=== PATIENT | male | born 1995 | race African-American/Black ===

== ENCOUNTER 2020-11-30 13:13 | Emergency (ER) | payer BC ==
[~2020-11-30] VITALS: Ht 172.7 cm; Wt 63.5 kg
--- NOTE | ~2020-11-30 | EMS ---
[address] [address] EMS Patient Care Report Name: CLAUDE WILCOX Room #: DEP AYANNA Simmons#: [id number] Admission: 11/30/20 Attend Phys: Discharge: 11/30/20 Date of : [birth year] Report #: [id number] THIS REPORT FOR: //name// Report Transmitted: 12/02/2020 08:50 EMS Care Summary [place], [place]/[facility] Incident [id number] @ 11/30/2020 12:43 Incident Location [address] [place], [place] [id number] Patient CLAUDE WILCOX Male, 25 Years 1995 Patient Address [address] [place], [place] [id number] Patient History Other,Type 1 Diabetes, Patient Allergies Reglan, Patient Medications Insulin, Chief Complaint abd pain Disposition Transported No Lights/[place] Dispatch Reason Abdominal Pain/Problems Transported To [facility] Narrative 2 dispatched to hemorrhage at residence. O/A M42 found male in house. Pt reported that he had abdominal pain with vomiting for the past 3 days. Pt had a history of diabetes and had not taken his insulin today. Pt reported he was throwing up both bright red vomit and coffee ground vomit. [place] moved [place] [facility] [place]. [place] [address] [address] EMS Patient Care Report Name: CLAUDE WILCOX Room #: DEP SnehaValerie#: [id number] Admission: 11/30/20 Attend Phys: Discharge: 11/30/20 Date of : [birth year] Report #: [id number] transported to [place]. M42 arrived at hospital and pt moved to room. M42 in service. Initial Vitals @12:59P: 98,R: 18,BP: 166/79,Pain: 6/10,GCS: 15,CO: 3,SpO2: 99,Revised Trauma: 12, @12:50P: 73,R: 18,BP: 161/100,Pain: 6/10,GCS: 15,Glucose: 186,SpO2: 100,Revised Trauma: 12, Assessments @12:48MENTAL:No Abnormalities,SKIN:No Abnormalities,HEENT:Head/Face: No Abnormalities,Eyes: No Abnormalities,Neck/Airway: No Abnormalities,LUNG SOUNDS:General: Nausea,ABDOMEN:General: Nausea,PELVIS//GI:EXTREMITIES:PULSE:NEURO:@13:02MENTAL:No Abnormalities,SKIN:No Abnormalities,HEENT:Head/Face: No Abnormalities,Eyes: No Abnormalities,Neck/Airway: No Abnormalities,LUNG SOUNDS:General: Nausea,ABDOMEN:General: Nausea,PELVIS//GI:No Abnormalities,EXTREMITIES:Left Arm: No Abnormalities,Right Arm: No Abnormalities,Left Leg: No Abnormalities,Right Leg: No Abnormalities,PULSE:NEURO:No Abnormalities, Impression Abdominal Pain Procedures @12:59Zofran - 8 Milligrams (mg) - OralResponse: Unchanged Timeline 12:40,Call Received 12:40,Dispatch Notified 12:43,Dispatched 12:43,En Route 12:45,On Scene 12:47,At Patient 12:50,BP: 161/100 M,PULSE: 73,RR: 18 R,SPO2: 100 Ox,ETCO2: ,B,PAIN: 6,GCS: 15, 12:53,Depart Scene 12:59,BP: 166/79 M,PULSE: 98,RR: 18 R,SPO2: 99 Ox,ETCO2: ,BG: ,PAIN: 6,GCS: 15, 12:59,Zofran - 8 Milligrams (mg) - Oral,Response: Unchanged 13:10,At Destination 13:30,Call Closed Disclaimer v1.1 Copyright 2020 [employer] This EMS Care Summary contains data elements from the applicable legal record (which may be displayed differently). It is designed to provide pertinent information for the following purposes: continuity of care, clinical quality, [address] [address] EMS Patient Care Report Name: CLAUDE WILCOX [facility] [id number] Admission: 11/30/20 Attend Phys: Discharge: 11/30/20 Date of : [birth year] Report #: [id number] and state data reporting. The complete legal record is available to ED staff and administrators of the receiving hospital in [email or web address]'s Patient Tracker. All data is provided "as is."
[2020-11-30 13:41] LABS: ABSOLUTE NEUTROPHILS 9.6 thou/uL (1.4-8.2); BASOPHILS 0.6 % (0.0-2.0); EOSINOPHILS 0.5 % (0.0-3.0); HEMATOCRIT 44.1 % (42.0-52.0); HEMOGLOBIN 14.7 gm/dL (14.0-18.0); LYMPHOCYTES 22.2 % (24.0-44.0); MCH 28.5 pg (26.0-34.0); MCHC 33.4 g/dL (28.0-37.0); MCV 85.3 fL (80.0-100.0); MONOCYTES 7.3 % (1.0-8.0); PLATELET COUNT 256 thou/uL (150-400); POLYS 69.4 % (36.0-66.0); RBC 5.17 mil/uL (4.50-6.00); RDW 14.6 % (10.5-14.5); WBC 13.9 thou/uL (4.0-11.0)
[2020-11-30 13:49] LABS: CALCIUM 9.6 mg/dL (8.5-10.1); CREATININE 1.4 mg/dL (0.7-1.3); POTASSIUM 3.5 mmol/L (3.5-5.1)
[2020-11-30 13:56] LABS: ALBUMIN 4.6 g/dL (3.4-5.0); TOTAL BILIRUBIN 1.4 mg/dL (0.2-1.0); TOTAL PROTEIN 8.2 g/dL (6.4-8.2)
[2020-11-30] MEDS ORDERED: HUMALOG100 UNIT/1 SUBQ (14:52)
[2020-11-30] MEDS ORDERED: BIKTARVY 50-201 EACH PO (14:53)
[2020-11-30] MEDS ORDERED: LANTUS100 UNIT/M SUBQ (14:53)
[2020-11-30] MEDS ORDERED: ZOFRAN ODT4 MG PO ×2 (16:46→20:56)
[2020-11-30] MEDS ORDERED: PROMETHAZINE HC25 M1 PO ×2 (18:35→20:56)
[2020-11-30 19:20] VITALS: BP 140/90
== END 2020-11-30 19:20 | disposition home or self-care (01) ==
LOC: ER 13:13
PROVIDERS: Emergency Medicine
DX: R10.9 Unspecified abdominal pain (principal); K31.84 Gastroparesis; R11.10 Vomiting, unspecified; E11.9 Type 2 diabetes mellitus without complications; Z79.4 Long term (current) use of insulin; Z79.899 Other long term (current) drug therapy; Z91.09 Other allergy status, other than to drugs and biological substances